=== PATIENT | female | born 1960 | race Caucasian/White ===

== ENCOUNTER 2018-02-23 05:41 | Day surgery (SDC) | payer MEDICAID ==
[2018-02-19 11:32] LABS: BASOPHILS % (AUTO) 0.6 % (0-1); EOSINOPHILS # (AUTO) 0.1 X10'3 (0-0.9); EOSINOPHILS % (AUTO) 1.8 % (0-6); LYMPHOCYTES # (AUTO) 1.7 X10'3 (1.1-4.8); LYMPHOCYTES % (AUTO) 27.4 % (21-51); MEAN CORPUSCULAR HEMOGLOBIN 27.5 PG (27.0-31.0); MEAN CORPUSCULAR HGB CONC 33.9 % (33.0-36.5); MEAN CORPUSCULAR VOLUME 81.2 FL (78-98); MONOCYTES # (AUTO) 0.4 X10'3 (0-0.9); MONOCYTES % (AUTO) 6.9 % (2-12); NEUTROPHILS % (AUTO) 63.3 % (42-75); PRE OP HEMATOCRIT 41.8 % (35.0-45.0); PRE OP HEMOGLOBIN 14.1 g/dL (12.0-16.0); PRE OP PLATELET COUNT 117 X10'3 (140-440); RED BLOOD COUNT 5.15 X10'6 (4.20-5.60); RED CELL DISTRIBUTION WIDTH 16.5 % (11.5-14.5)
[2018-02-19 11:50] LABS: ALBUMIN 3.6 G/DL (3.4-5.0); ALKALINE PHOSPHATASE 149 IU/L (46-116); BLOOD UREA NITROGEN 17 MG/DL (7-18); BUN/CREATININE RATIO 24.3 (6.6-38.0); CALCIUM 8.8 MG/DL (8.5-10.1); CHLORIDE 106 MMOL/L (99-107); PRE OP ALT 30 U/L (30-65); PRE OP ANION GAP 10 (8-16); PRE OP AST 16 U/L (10-37); PRE OP BILIRUB, TOTAL 0.5 MG/DL (0.0-1.0); PRE OP POTASSIUM 4.1 MMOL/L (3.4-5.1); PRE OP SODIUM 139 MMOL/L (135-145); TOTAL CARBON DIOXIDE 23.4 MMOL/L (24-32); TOTAL PROTEIN 7.1 G/DL (6.4-8.2); eGFR 86 ML/MIN
[2018-02-19 11:52] LABS: PRE OP GLUCOSE 229 MG/DL (70-104)
[~2018-02-23] VITALS: Ht 175.3 cm; Wt 146.7 kg
[2018-02-23] VITALS (26 sets, daily range): BP systolic 118–203; BP diastolic 55–112
[~2018-02-23 05:41] MED LIST: ATOR80TA PO; CHOL50004 PO; Cefazolin 2GM/100ML NS IVPB IV ONE; DIT5T PO; ESCI20TA29 PO; GABA600T2 PO; INSU100C10 SQ; INSU100V9 SQ; KEP500T PO; LEVO112T61 PO; LISI2.5T89 PO; MAGN64TA8 PO; PANT20TA3 PO; ROPI1TAB2 PO; famotidine 20mg tablet PO ONE; ringers solution, lacted 1,000 ML IV SCH
[2018-02-23] MEDS ORDERED: scopolamine 1.5mg patch.TD72 TD ONE (06:35)
[2018-02-23] MEDS ORDERED: insulin regular, human 10 units/0.1 ml syringe IV ONE ×2 (06:55→07:15)
[2018-02-23] MEDS ORDERED: insulin regular, human 10 units/0.1 ml syringe SQ ONE ×3 (07:00→09:15)
[2018-02-23] MEDS ORDERED: ROPIVAcaine 0.5% (5mg/ml) 30ml vial ONE (07:00)
[2018-02-23] MEDS ORDERED: cloNIDine hcl/PF 100mcg/ml inj ONE (07:07)
[2018-02-23] MEDS ORDERED: BUPIVAcaine/PF 7.5mg/ml (0.75%) 10ml vial ONE (07:07)
[2018-02-23] MEDS ORDERED: desflurane 240ml liquid inh. IH ONE (07:18)
[2018-02-23] MEDS ORDERED: ondansetron/PF 4mg/2ml inj ONE (07:18)
[2018-02-23] MEDS ORDERED: MIDAZolam 5mg/5ml vial ONE (07:21)
[2018-02-23] MEDS ORDERED: fentaNYL/PF 50MCG/1 ML 2ML syringe ONE (07:21)
[2018-02-23] MEDS ORDERED: propofol inj 20 ML IV ONE (08:24)
[2018-02-23] MEDS ORDERED: rocuronium 10mg/ml inj IV ONE (08:24)
[2018-02-23] MEDS ORDERED: LIDOcaine 2% (20mg/ml) 5ml vial ONE (08:24)
[2018-02-23] MEDS ORDERED: 0.9 % SODIUM CHLORIDE 10 ML VIAL ONE ×2 (08:24)
[2018-02-23] MEDS ORDERED: LIDOcaine 1%/PF (10mg/ml) 5ml vial ONE (08:25)
[2018-02-23] MEDS ORDERED: dexamethasone sod phosphate 4mg/ml inj. ONE (08:25)
[2018-02-23] MEDS ORDERED: morphine 10mg/ml inj. ONE (08:26)
[2018-02-23] MEDS ORDERED: ringers solution, lacted 1,000 ML IV SCH (08:37)
[2018-02-23] MEDS ORDERED: proCHLORperazine 10 MG/2 ml inj IV PRN (08:40)
[2018-02-23] MEDS ORDERED: ondansetron/PF 4mg/2ml inj IV PRN (08:40)
[2018-02-23] MEDS ORDERED: meperidine/PF 25mg/ml syringe IV PRN ×3 (08:40)
[2018-02-23] MEDS ORDERED: morphine 4 MG/ML inj SYRINge IV PRN ×2 (08:40)
[2018-02-23] MEDS ORDERED: hydrALAZINE 20mg/ml inj. IV PRN (08:55)
[2018-02-23] MEDS ORDERED: labetalol 20mg/4ml (5mg/ml) syringe IV PRN (08:55)
[2018-02-23] MEDS ORDERED: dextrose ORAL solution 15 GM/59 ML bottle PO PRN ×2 (14:25)
[2018-02-23] MEDS ORDERED: glucagon, human recombinant 1mg kit SUBCUT PRN (14:25)
[2018-02-23] MEDS ORDERED: MESSAGE TO PHARMACY PO ONE (14:25)
[2018-02-23] MEDS ORDERED: dextrose 50%-water 50ml dispensing syringe IV PRN ×2 (14:25)
[2018-02-23] MEDS: insulin Lispro (HumaLOG) vial - multi-dose SQ SCH ×2 (19:06→21:27)
[2018-02-23] MEDS ORDERED: insulin glargine (Lantus) pen - multi-dose SQ SCH (21:00)
[2018-02-23] MEDS: HYDROcodone/acetaminophen 10/325mg tab PO PRN (21:23)
[2018-02-24 02:00] VITALS: BP 127/67
[2018-02-24] MEDS: HYDROcodone/acetaminophen 10/325mg tab PO PRN (02:38)
[2018-02-24 05:00] VITALS: BP 137/64
[2018-02-24] MEDS ORDERED: pantoprazole 40mg Tablet.DR PO SCH (07:30)
[2018-02-24] MEDS ORDERED: oxybutynin 5mg tablet PO SCH (08:00)
[2018-02-24] MEDS ORDERED: citalopram 20mg tablet PO SCH (08:00)
[2018-02-24] MEDS ORDERED: gabapentin 300mg capsule PO SCH (08:00)
[2018-02-24] MEDS ORDERED: lisinopril 5mg tablet PO SCH (08:00)
[2018-02-24] MEDS ORDERED: levetiracetam 250mg tablet PO SCH (08:00)
[2018-02-24] MEDS ORDERED: vitamin D (cholecalciferol) 1,000 unit tablet PO SCH (08:00)
[2018-02-24] MEDS ORDERED: ROPINIRole 1mg tablet PO SCH (08:00)
[2018-02-24] MEDS ORDERED: INSULIN GLARGINE HUM REC ANLOG 100 UNIT SQ SCH (08:00)
[2018-02-24] MEDS ORDERED: levoTHYROXINE 112mcg tablet PO SCH (08:00)
[2018-02-24] MEDS: insulin Lispro (HumaLOG) vial - multi-dose SQ SCH (08:12)
[2018-02-24] MEDS ORDERED: insulin glargine (Lantus) pen - multi-dose SQ ONE (09:15)
[2018-02-24 10:00] VITALS: BP 125/59
[2018-02-24] MEDS ORDERED: atorvastatin 20mg tablet PO SCH (21:00)
== END 2018-02-24 12:17 | disposition home or self-care (01) ==
LOC: PAS 05:41 → ORTHO 4S 14:07 → PAS 02-24 12:17
PROVIDERS: ATTEND Orthopaedic Surgery
DX: M75.42 Impingement syndrome of left shoulder (principal); M75.32 Calcific tendinitis of left shoulder; M75.52 Bursitis of left shoulder; M25.712 Osteophyte, left shoulder; G89.18 Other acute postprocedural pain; E11.9 Type 2 diabetes mellitus without complications; I10 Essential (primary) hypertension; E03.9 Hypothyroidism, unspecified; E78.5 Hyperlipidemia, unspecified; F32.9 Major depressive disorder, single episode, unspecified; F41.9 Anxiety disorder, unspecified; G89.29 Other chronic pain; I25.10 Atherosclerotic heart disease of native coronary artery without angina pectoris; K21.9 Gastro-esophageal reflux disease without esophagitis; M81.0 Age-related osteoporosis without current pathological fracture; Z79.4 Long term (current) use of insulin; Z88.2 Allergy status to sulfonamides; Z88.8 Allergy status to other drugs, medicaments and biological substances; Z91.040 Latex allergy status; Z87.891 Personal history of nicotine dependence; Z90.710 Acquired absence of both cervix and uterus; Z88.5 Allergy status to narcotic agent; Z88.6 Allergy status to analgesic agent; Z90.49 Acquired absence of other specified parts of digestive tract; Z98.890 Other specified postprocedural states; Z79.899 Other long term (current) drug therapy
CPT/HCPCS: 29823; 29826; 36415; 64415; 80053; 82948; 83036; 85025; 93005; A4565; A6449; J0690; J0735; J1100; J1815; J2001; J2250; J2270; J2405; J2704; J2795; J3010; J3490; J7030; J7120; A7000

== ENCOUNTER 2019-07-22 07:12 | Observation (INO) | payer MEDICAID ==
[2019-07-14 12:14] LABS: BASOPHILS # (AUTO) 0.1 X10'3 (0-0.2); EOSINOPHILS % (AUTO) 0.6 % (0-6); LYMPHOCYTES # (AUTO) 1.9 X10'3 (1.1-4.8); LYMPHOCYTES % (AUTO) 24.7 % (21-51); MEAN CORPUSCULAR HEMOGLOBIN 26.4 PG (27.0-31.0); MEAN CORPUSCULAR HGB CONC 33.1 g/dL (33.0-36.5); MEAN CORPUSCULAR VOLUME 79.8 FL (78-98); MEAN PLATELET VOLUME 8.5 FL (7.4-10.4); MONOCYTES # (AUTO) 0.5 X10'3 (0-0.9); NEUTROPHILS # (AUTO) 5.1 X10'3 (1.8-7.7); NEUTROPHILS % (AUTO) 67.7 % (42-75); PRE OP HEMOGLOBIN 13.6 g/dL (12.0-16.0); PRE OP PLATELET COUNT 154 X10'3 (140-440); RED BLOOD COUNT 5.14 X10'6 (4.20-5.60); RED CELL DISTRIBUTION WIDTH 17.4 % (11.5-14.5)
[2019-07-14 12:28] LABS: PARTIAL THROMBOPLASTIN TIME 26 SECONDS (22-32)
[2019-07-14 12:29] LABS: ALBUMIN 3.6 G/DL (3.4-5.0); ALBUMIN/GLOBULIN RATIO 0.9 (1.1-1.5); ALKALINE PHOSPHATASE 139 IU/L (46-116); BLOOD UREA NITROGEN 21 MG/DL (7-18); BUN/CREATININE RATIO 26.9 (6.6-38.0); CALCIUM 9.1 MG/DL (8.5-10.1); CHLORIDE 107 MMOL/L (99-107); CREATININE 0.78 MG/DL (0.40-0.90); PRE OP ALT 25 U/L (30-65); PRE OP ANION GAP 10 (8-16); PRE OP AST 10 U/L (10-37); PRE OP BILIRUB, TOTAL 0.4 MG/DL (0.0-1.0); PRE OP GLUCOSE 214 MG/DL (70-104); PRE OP POTASSIUM 4.4 MMOL/L (3.4-5.1); PRE OP SODIUM 143 MMOL/L (135-145); TOTAL CARBON DIOXIDE 25.8 MMOL/L (24-32); TOTAL PROTEIN 7.4 G/DL (6.4-8.2); eGFR 75 ML/MIN
[2019-07-22] VITALS (17 sets, daily range): BP systolic 115–180; BP diastolic 57–98
[~2019-07-22] VITALS: Ht 175.3 cm; Wt 149.7 kg
[~2019-07-22 07:12] MED LIST changes: -CHOL50004 PO; -Cefazolin 2GM/100ML NS IVPB IV ONE; +GABA600T13 PO; -GABA600T2 PO; +HYDR-4383 PO; -MAGN64TA8 PO; +METF500T20 PO; -famotidine 20mg tablet PO ONE; -ringers solution, lacted 1,000 ML IV SCH
[2019-07-22] MEDS: ringers solution, lacted 1,000 ML IV SCH (09:08)
[2019-07-22] MEDS ORDERED: famotidine 20mg tablet PO ONE (10:15)
[2019-07-22] MEDS ORDERED: tranexamic acid inj. 1,500 MG in normal saline 100ml IV soln 100 ML IV ONE ×4 (10:15)
[2019-07-22] MEDS ORDERED: ceFAZolin 1GM/D5W- ADD-VANTAGE 50 ML IV ONE (10:15)
[2019-07-22] MEDS ORDERED: vancomycin inj 1,500 MG in normal saline 300ml IV soln IV ONE (10:15)
[2019-07-22] MEDS ORDERED: ceFAZolin inj. 2,000 MG in dextrose 5%-water 50ml 50 ML IV ONE (10:15)
[2019-07-22] MEDS ORDERED: HYDR-4383 PO (12:24)
[2019-07-22] MEDS ORDERED: HYDROcodone/acetaminophen 10/325mg tab PO ONE (12:25)
[2019-07-22] MEDS ORDERED: fentaNYL /PF 50mcg/ml 5ml ampule ONE (14:48)
[2019-07-22] MEDS ORDERED: MIDAZolam 5mg/5ml vial ONE (14:48)
[2019-07-22] MEDS ORDERED: ROPIVAcaine 0.5% (5mg/ml) 30ml vial ONE (14:49)
[2019-07-22] MEDS ORDERED: rocuronium 10mg/ml inj IV ONE (14:50)
[2019-07-22] MEDS ORDERED: sevoflurane 250ml liquid IH ONE (14:50)
[2019-07-22] MEDS ORDERED: propofol inj 20 ML IV ONE (15:53)
[2019-07-22] MEDS ORDERED: dexamethasone sod phosphate 4mg/ml inj. ONE (15:53)
[2019-07-22] MEDS ORDERED: LIDOcaine 2% (20mg/ml) 5ml vial ONE (15:53)
[2019-07-22] MEDS ORDERED: BUPIVAcaine/PF 2.5mg/ml (0.25%) 10ml vial ONE (16:39)
[2019-07-22] MEDS ORDERED: ringers solution, lacted 1,000 ML IV SCH (16:51)
[2019-07-22] MEDS ORDERED: HYDROmorphone 1 mg/ml syringe IV PRN (16:55)
[2019-07-22] MEDS ORDERED: ondansetron/PF 4mg/2ml inj IV PRN ×2 (16:55)
[2019-07-22] MEDS ORDERED: oxyCODONE IR 5mg (immed. release) tablet PO PRN (16:55)
[2019-07-22] MEDS ORDERED: morphine 4 MG/ML inj SYRINge IV PRN ×2 (16:55)
[2019-07-22] MEDS ORDERED: proCHLORperazine 10 MG/2 ml inj IV PRN (16:55)
[2019-07-22] MEDS ORDERED: meperidine/PF 25mg/ml syringe IV PRN ×3 (16:55)
[2019-07-22] MEDS ORDERED: diphenhydrAMINE 25mg capsule PO PRN ×2 (16:55)
[2019-07-22] MEDS ORDERED: acetaminophen 325mg tablet PO PRN (16:55)
[2019-07-22] MEDS ORDERED: potassium cl 20mEq in 1/2 NS 1,000 ML IV SCH (16:55)
[2019-07-22] MEDS ORDERED: HYDROmorphone inj. 0.5 MG/0.5 ML DISP.SYRIN IV PRN (16:55)
[2019-07-22] MEDS ORDERED: bisacodyl 10mg suppository rectal RC PRN (16:55)
[2019-07-22] MEDS ORDERED: magnesium hydroxide 30ml (MOM) UD suspension PO PRN (16:55)
[2019-07-22] MEDS ORDERED: ondansetron/PF 4mg/2ml inj ONE (17:07)
[2019-07-22] MEDS ORDERED: glycopyrrolate 0.2mg/ml inj ONE (17:12)
[2019-07-22] MEDS ORDERED: neostigmine methylsulfate 1 MG/ML 10ml vial ONE (17:12)
--- NOTE | 2019-07-22 17:25 | NUR ---
Received from OR via ORTHO BED , accompanied by Anesthesiologist DR CELESTE and report given by Anesthesiolgist. PT PLACED ON O2 AND MONITOR, S/P RIGHT SHOULDER REPAIR, GENERAL ANESTHESIA AND INTERSCALENE BLOCK, PT HAS REIGHT SHOULDER DRESSING CDI, GOOD RADIAL PULSES BILAT, DENIES ANY PAIN OR NAUSEA THIS TIME WILL CONT TO ASSESS
--- NOTE | 2019-07-22 18:45 | NUR ---
Report was called to me by America TORRES in [facility] and I was able to ask questions, I will give report to Brittani TORRES once she is available and she is going to be the nurse for the patient.
--- NOTE | 2019-07-22 18:45 | NUR ---
Report called to receiving nurse. Transferred via ORTHO BED TO ROOM 4022 Belongings . Special Issues communicated to receiving nurse.
--- NOTE | 2019-07-22 19:00 | NUR ---
Patient arrived to floor on a bed, she is awake and vitals are stable. The operative shoulder is cdi to the incision and I applied a new powder pack to operative site. She has a sling on and the operative arm is warm, csm is intact and she is able to lift arm and move the fingers of operative arm. She has iv in place and call light in reach and visitors at bedside.
--- NOTE | 2019-07-22 19:47 | NUR ---
Discovered that the vitals sign machine did not save the frequency of q 15 minutes so I rest it at this time for every 15 minutes.
[2019-07-22] MEDS ORDERED: sennosides 8.6mg tablet PO SCH (21:00)
[2019-07-22] MEDS ORDERED: atorvastatin 20mg tablet PO SCH (21:00)
[2019-07-22] MEDS: levetiracetam 250mg tablet PO SCH (21:07)
[2019-07-22] MEDS: gabapentin 300mg capsule PO SCH (21:07)
[2019-07-22] MEDS: ROPINIRole 1mg tablet PO SCH (21:09)
[2019-07-22] MEDS: acetaminophen 325mg tablet PO SCH (21:09)
[2019-07-23] VITALS: BP 90/66
[2019-07-23] MEDS: acetaminophen 325mg tablet PO SCH ×2 (01:55→08:26)
[2019-07-23 02:00] VITALS: BP 122/57
[2019-07-23] MEDS: ringers solution, lacted 1,000 ML IV SCH ×5 (03:18→04:41)
[2019-07-23 06:00] VITALS: BP 132/62
--- NOTE | 2019-07-23 06:10 | NUR ---
Patient in room ORTHO 4022. I have received report from Brittani TORRES and had the opportunity to ask questions and assume patient care.
[2019-07-23 06:27] LABS: ANION GAP 12 (8-16); CHLORIDE 104 MMOL/L (99-107); POTASSIUM 4.6 MMOL/L (3.5-5.1); SODIUM 138 MMOL/L (135-145); TOTAL CARBON DIOXIDE 22.3 MMOL/L (24-32)
[2019-07-23 06:30] LABS: BASOPHILS % (AUTO) 0.2 % (0-1); EOSINOPHILS % (AUTO) 0 % (0-6); HEMATOCRIT 38.4 % (35.0-45.0); HEMOGLOBIN 12.6 g/dl (12.0-16.0); LYMPHOCYTES # (AUTO) 0.9 X10'3 (1.1-4.8); LYMPHOCYTES % (AUTO) 11.9 % (21-51); MEAN CORPUSCULAR HEMOGLOBIN 26.3 PG (27.0-31.0); MEAN CORPUSCULAR HGB CONC 32.9 g/dL (33.0-36.5); MEAN CORPUSCULAR VOLUME 79.9 FL (78-98); MEAN PLATELET VOLUME 9.3 FL (7.4-10.4); MONOCYTES # (AUTO) 0.2 X10'3 (0-0.9); NEUTROPHILS # (AUTO) 6.4 X10'3 (1.8-7.7); NEUTROPHILS % (AUTO) 84.9 % (42-75); PLATELET COUNT 128 X10'3 (140-440); RED CELL DISTRIBUTION WIDTH 17.3 % (11.5-14.5); WHITE BLOOD COUNT 7.5 X10'3 (4.5-11.0)
[2019-07-23] MEDS ORDERED: metFORMIN 500mg tablet PO SCH (07:00)
[2019-07-23] MEDS ORDERED: levoTHYROXINE 112mcg tablet PO SCH (08:00)
[2019-07-23] MEDS ORDERED: ESCITALOPRAM OXALATE 5 MG TABLET PO SCH (08:00)
[2019-07-23] MEDS ORDERED: lisinopril 10 MG tablet PO SCH (08:00)
[2019-07-23] MEDS ORDERED: pantoprazole 40mg Tablet.DR PO SCH (08:00)
[2019-07-23] MEDS: ROPINIRole 1mg tablet PO SCH (08:00)
[2019-07-23] MEDS ORDERED: oxybutynin 5mg tablet PO SCH (08:00)
[2019-07-23] MEDS: levetiracetam 250mg tablet PO SCH (08:26)
[2019-07-23] MEDS: gabapentin 300mg capsule PO SCH ×2 (08:26→13:01)
[2019-07-23] MEDS ORDERED: aspirin 325mg tablet PO SCH (08:30)
[2019-07-23] MEDS ORDERED: dextrose ORAL solution 15 GM/59 ML bottle PO PRN ×2 (09:05)
[2019-07-23] MEDS ORDERED: dextrose 50%-water 50ml dispensing syringe IV PRN ×2 (09:05)
[2019-07-23] MEDS ORDERED: glucagon, human recombinant 1mg kit SUBCUT PRN (09:05)
[2019-07-23] MEDS ORDERED: MESSAGE TO PHARMACY PO ONE (09:05)
[2019-07-23] MEDS: insulin Lispro (HumaLOG) vial - multi-dose SQ SCH ×2 (09:44→13:01)
[2019-07-23 10:00] VITALS: BP 121/53
--- NOTE | 2019-07-23 14:48 | NUR ---
Patient stable for discharge home today. All instructions given to patient, IV out.
[2019-07-23] MEDS ORDERED: insulin glargine (Lantus) pen - multi-dose SQ SCH (21:00)
[2019-07-24] MEDS ORDERED: acetaminophen 325mg tablet PO PRN (16:55)
== END 2019-07-23 13:20 | disposition home or self-care (01) ==
LOC: PAS 07:12 → ORTHO 4S 19:23
PROVIDERS: ADMIT Orthopaedic Surgery; ATTEND Orthopaedic Surgery
DX: M75.41 Impingement syndrome of right shoulder (principal); M75.31 Calcific tendinitis of right shoulder; M75.51 Bursitis of right shoulder; M19.011 Primary osteoarthritis, right shoulder; E11.9 Type 2 diabetes mellitus without complications; Z87.891 Personal history of nicotine dependence; Z90.710 Acquired absence of both cervix and uterus; Z79.4 Long term (current) use of insulin; Z79.899 Other long term (current) drug therapy
CPT/HCPCS: 23415; 36415; 80051; 80053; 82948; 83036; 85025; 85610; 85730; 87081; 93005; 96365; 96366; 96372; 96375; 97161; 97530; G0378; J0690; J1100; J1815; J2001; J2250; J2270; J2405; J2704; J2710; J3010; J3370; J3490; J7060; J7120; A4565; A4618; A6449; A7000; J1170; J2795; J3480

== ENCOUNTER 2020-04-15 02:35 | Emergency (ER) | payer MEDICAID ==
[~2020-04-15] VITALS: Ht 175.3 cm; Wt 150.9 kg
[~2020-04-15 02:35] MED LIST changes: +METF-900 PO; -METF500T20 PO
--- NOTE | 2020-04-15 02:58 | NUR ---
EMS DID NOT TELL STAFF PT WAS TESTED FOR COVID. SHE STATED SHE HAD A TEST ON THURSDAY. SHE WAS THEN PLACED ON CONTACT PLUS PRECAUTIONS. DR. DEL VALLE MADE AWARE. WILL LOOK UP RESULTS. PT STATES THEY HAVE NOT CONTACTED HER
[2020-04-15] MEDS ORDERED: LORazepam 1 MG tablet PO ONE (03:40)
[2020-04-15] MEDS ORDERED: normal saline 1000ml 1,000 ML IV ONE (03:40)
[2020-04-15 03:51] LABS: BASOPHILS % (AUTO) 0.4 % (0-1); EOSINOPHILS # (AUTO) 0.1 X10'3 (0-0.9); EOSINOPHILS % (AUTO) 1.6 % (0-6); HEMATOCRIT 40.9 % (35.0-45.0); HEMOGLOBIN 13.3 g/dl (12.0-16.0); LYMPHOCYTES # (AUTO) 1.9 X10'3 (1.1-4.8); LYMPHOCYTES % (AUTO) 31.2 % (21-51); MEAN CORPUSCULAR HEMOGLOBIN 25.9 PG (27.0-31.0); MEAN CORPUSCULAR HGB CONC 32.5 g/dL (33.0-36.5); MEAN CORPUSCULAR VOLUME 79.6 FL (78-98); MEAN PLATELET VOLUME 8.6 FL (7.4-10.4); MONOCYTES # (AUTO) 0.4 X10'3 (0-0.9); NEUTROPHILS # (AUTO) 3.7 X10'3 (1.8-7.7); NEUTROPHILS % (AUTO) 59.8 % (42-75); PLATELET COUNT 148 X10'3 (140-440); RED BLOOD COUNT 5.14 X10'6 (4.20-5.60); RED CELL DISTRIBUTION WIDTH 17.7 % (11.5-14.5); WHITE BLOOD COUNT 6.2 X10'3 (4.5-11.0)
[2020-04-15 03:59] LABS: ALANINE AMINOTRANSFERASE 24 U/L (12-78); ALBUMIN 3.6 G/DL (3.4-5.0); ALKALINE PHOSPHATASE 141 IU/L (46-116); ANION GAP 12 (8-16); ASPARTATE AMINO TRANSFERASE 13 U/L (10-37); BILIRUBIN,TOTAL 0.5 MG/DL (0.1-1.0); BLOOD UREA NITROGEN 17 MG/DL (7-18); BUN/CREATININE RATIO 18.9 (6.6-38.0); CALCIUM 9.3 MG/DL (8.5-10.1); CHLORIDE 103 MMOL/L (99-107); GLUCOSE 224 MG/DL (70-104); POTASSIUM 3.9 MMOL/L (3.5-5.1); SODIUM 140 MMOL/L (135-145); TOTAL CARBON DIOXIDE 25.1 MMOL/L (24-32); TOTAL PROTEIN 7.2 G/DL (6.4-8.2); eGFR 64 ML/MIN
[2020-04-15] MEDS ORDERED: iohexol 350MG/ML 100ml bottle IV ONE (04:13)
[2020-04-15] MEDS ORDERED: OMEP40CA13 PO (04:14)
[2020-04-15 04:22] LABS: D-DIMER < 0.19 MG/L FEU (0-0.50)
[2020-04-15] MEDS ORDERED: [UNRECOGNIZED DRUG - REMARK] PO NR (05:00)
[2020-04-15 05:38] VITALS: BP 143/72
== END 2020-04-15 07:40 | disposition home or self-care (01) ==
LOC: ER 02:35
DX: R42 Dizziness and giddiness (principal); R50.9 Fever, unspecified; J34.89 Other specified disorders of nose and nasal sinuses; M54.2 Cervicalgia; E78.00 Pure hypercholesterolemia, unspecified; E11.9 Type 2 diabetes mellitus without complications; E03.9 Hypothyroidism, unspecified; F32.9 Major depressive disorder, single episode, unspecified; Z86.69 Personal history of other diseases of the nervous system and sense organs; Z90.89 Acquired absence of other organs; Z90.49 Acquired absence of other specified parts of digestive tract; Z90.710 Acquired absence of both cervix and uterus; Z88.2 Allergy status to sulfonamides; Z88.5 Allergy status to narcotic agent; Z88.1 Allergy status to other antibiotic agents; Z88.8 Allergy status to other drugs, medicaments and biological substances; Z91.040 Latex allergy status; Z79.4 Long term (current) use of insulin; Z79.899 Other long term (current) drug therapy
CPT/HCPCS: 36415; 70450; 70496; 70498; 71045; 80053; 84443; 84484; 85025; 85379; 93005; 99285; J7030; Q9967

== ENCOUNTER 2021-01-04 12:24 | Inpatient (IN) | payer MEDICAID ==
[2020-12-31 12:18] LABS: BASOPHILS % (AUTO) 0.5 % (0-1); EOSINOPHILS # (AUTO) 0.1 X10'3 (0-0.9); EOSINOPHILS % (AUTO) 1.2 % (0-6); LYMPHOCYTES # (AUTO) 1.5 X10'3 (1.1-4.8); LYMPHOCYTES % (AUTO) 21.3 % (21-51); MEAN CORPUSCULAR HGB CONC 32.4 g/dL (33.0-36.5); MEAN CORPUSCULAR VOLUME 80.4 FL (78-98); MEAN PLATELET VOLUME 8.6 FL (7.4-10.4); MONOCYTES # (AUTO) 0.5 X10'3 (0-0.9); MONOCYTES % (AUTO) 7.2 % (2-12); NEUTROPHILS # (AUTO) 4.8 X10'3 (1.8-7.7); NEUTROPHILS % (AUTO) 69.8 % (42-75); PRE OP HEMATOCRIT 40.5 % (35.0-45.0); PRE OP HEMOGLOBIN 13.1 g/dL (12.0-16.0); PRE OP PLATELET COUNT 142 X10'3 (140-440); RED BLOOD COUNT 5.04 X10'6 (4.20-5.60); RED CELL DISTRIBUTION WIDTH 17.8 % (11.5-14.5)
[2020-12-31 12:25] LABS: CLARITY,URINE CLOUDY (Clear); COLOR,URINE YELLOW (Yellow); GLUCOSE, URINE NEGATIVE (Neg); KETONES,URINE TRACE mg/dl (Neg); LEUKOCYTE ESTERASE ,URINE NEGATIVE (Neg); NITRITES, URINE NEGATIVE (Neg); OCCULT BLOOD,URINE NEGATIVE (Neg); PROTEIN,URINE NEGATIVE (Neg); UROBILINOGEN,URINE 0.2 E.U/dL (0.2-1.0)
[2020-12-31 12:27] LABS: UA COLLECTION TYPE NON-SPECIFIED
[2020-12-31 12:35] LABS: ALBUMIN 3.7 G/DL (3.4-5.0); ALKALINE PHOSPHATASE 152 IU/L (46-116); BLOOD UREA NITROGEN 15 MG/DL (7-18); BUN/CREATININE RATIO 20.5 (6.6-38.0); CALCIUM 8.7 MG/DL (8.5-10.1); CHLORIDE 107 MMOL/L (99-107); CREATININE 0.73 MG/DL (0.40-0.90); PRE OP ALT 31 U/L (30-65); PRE OP ANION GAP 15 (8-16); PRE OP AST 19 U/L (10-37); PRE OP BILIRUB, TOTAL 0.3 MG/DL (0.0-1.0); PRE OP GLUCOSE 175 MG/DL (70-104); PRE OP POTASSIUM 4.7 MMOL/L (3.4-5.1); PRE OP SODIUM 141 MMOL/L (135-145); TOTAL CARBON DIOXIDE 19.1 MMOL/L (24-32); TOTAL PROTEIN 7.3 G/DL (6.4-8.2); eGFR 81 ML/MIN
[2020-12-31 12:38] LABS: HYALINE CASTS 0-3 /LPF (NEGATIVE); MUCUS STRANDS MODERATE /LPF (Neg); SQUAMOUS EPITHELIAL CELL,UR MANY /LPF (FEW)
[2020-12-31 12:39] LABS: BACTERIA,URINE 1+ /HPF (Neg); RBC,URINE 0-2 /HPF (0-2); TRANSITIONAL EPI CELLS,URINE FEW /HPF; WBC,URINE 0-4 /HPF (0-4)
[2021-01-04] VITALS (22 sets, daily range): BP systolic 121–186; BP diastolic 49–93
[~2021-01-04] VITALS: Ht 175.3 cm; Wt 151.8 kg
[~2021-01-04 12:24] MED LIST changes: -HYDR-4383 PO; -INSU100C10 SQ; +INSU100I39 SQ; +OMEP40CA13 PO; -PANT20TA3 PO; +albuterol 2.5 MG/3 ML nebule NEB ONE; +ceFAZolin/D5W- 1GM premix 50 ML IV ONE; +cefazolin/dext.iso 2gm/100ml 100 ML IV ONE; +famotidine 20mg tablet PO ONE
[2021-01-04] MEDS: ringers solution, lacted 1,000 ML IV SCH ×2 (13:31→21:49)
[2021-01-04] MEDS ORDERED: fentaNYL/PF 50MCG/1 ML 2ML syringe ONE (16:37)
[2021-01-04] MEDS ORDERED: MIDAZolam 1 MG/ML 5ML VIAL ONE (16:38)
[2021-01-04] MEDS ORDERED: ROPIVAcaine 0.5% (5mg/ml) 30ml vial ONE (16:46)
[2021-01-04] MEDS ORDERED: BUPIVAcaine/PF 7.5mg/ml (0.75%) 10ml vial ONE (17:03)
[2021-01-04] MEDS ORDERED: propofol inj 20 ML IV ONE (17:07)
[2021-01-04] MEDS ORDERED: ondansetron/PF 4mg/2ml inj ONE (17:26)
[2021-01-04] MEDS ORDERED: dexamethasone sod phosphate 4mg/ml inj. ONE (17:26)
[2021-01-04] MEDS ORDERED: meperidine/PF 25mg/ml syringe IV PRN ×3 (18:00)
[2021-01-04] MEDS ORDERED: morphine 4 MG/ML inj SYRINge IV PRN (18:00)
[2021-01-04] MEDS ORDERED: proCHLORperazine 10 MG/2 ml inj IV PRN (18:00)
[2021-01-04] MEDS ORDERED: morphine 2 MG/ML inj. syringe IV PRN (18:00)
[2021-01-04] MEDS ORDERED: ringers solution, lacted 1,000 ML IV SCH (18:00)
[2021-01-04] MEDS ORDERED: ondansetron/PF 4mg/2ml inj IV PRN ×2 (18:00→19:50)
[2021-01-04] MEDS ORDERED: bacitracin 15gm ointment TP ONE (18:16)
--- NOTE | 2021-01-04 18:46 | NUR ---
Received from OR via [facility], accompanied by Anesthesiologist DR CELESTE and report given by Anesthesiologist. PT DROWSY, DENIES PAIN, LEFT FOOT W/EVA WRAP COVERING INCISION/DRSG W/WALKING BOOT ON, [address] IN 2ND-5TH TOE. Addendum: 01/04/21 at 194 by Camryn Mathur RN Amended: Links added.
[2021-01-04] MEDS ORDERED: labetalol 20mg/4ml (5mg/ml) syringe IV ONE (19:08)
[2021-01-04] MEDS: labetalol 20mg/4ml (5mg/ml) syringe IV PRN (19:14)
[2021-01-04] MEDS ORDERED: mag hydrox/Alum hydrox/simeth 30ml oral suspension PO PRN (19:50)
[2021-01-04] MEDS ORDERED: HYDROcodone/acetaminophen 10/325mg tab PO PRN (19:50)
[2021-01-04] MEDS ORDERED: magnesium hydroxide 30ml (MOM) UD suspension PO PRN (19:50)
[2021-01-04] MEDS ORDERED: acetaminophen 325mg tablet PO PRN (19:50)
--- NOTE | 2021-01-04 20:31 | NUR ---
Patient in room . I have received report from KENYATTA TORRES PAS UNIT RN and had the opportunity to ask questions and will assume patient care upon arrival to the floor. Addendum: 01/04/21 at 2032 by Yoana Doan RN Amended: Links added.
--- NOTE | 2021-01-04 20:46 | NUR ---
Report called to receiving nurse. Transferred via GURNEY ONTO BED, 2 BAGS OF Belongings, CELL PHONE SENT W/PT TO ROOM 340B, RECEIVING RN AT BEDSIDE TO RECIEVE PT. BLL, CALL LIGHT GIVEN TO PT, SIDE RAILS UP. Special Issues communicated to receiving nurse. YES. Addendum: 01/04/21 at 2105 by Camryn Mathur RN Amended: Links added.
[2021-01-04] MEDS ORDERED: atorvastatin 20mg tablet PO SCH (21:00)
--- NOTE | 2021-01-04 21:00 | NUR ---
pt arrived to the floor set in room vitals done and hs meds given and [place] done and then given a sandwich. pt hungry. 2099 to 2129.
[2021-01-04] MEDS: metFORMIN 500mg tablet PO SCH (21:20)
[2021-01-04] MEDS: ROPINIRole 1mg tablet PO SCH (21:22)
--- NOTE | 2021-01-04 22:00 | NUR ---
medicated for pain with po norco for right and left foot pain.
[2021-01-04] MEDS: insulin Lispro (HumaLOG) vial - multi-dose SQ PRN (23:02)
--- NOTE | 2021-01-05 00:30 | NUR ---
pt awoke pure wick in place and no changes ice pack to left leg. pt took po Neurontin.
[2021-01-05 00:35] VITALS: BP 124/58
[2021-01-05] MEDS: gabapentin 300mg capsule PO SCH ×2 (00:42→07:35)
--- NOTE | 2021-01-05 02:38 | NUR ---
pt resting eyes closed without changes.
[2021-01-05 04:09] VITALS: BP 125/69
--- NOTE | 2021-01-05 04:16 | NUR ---
pt awake and reading no complaints at this time. vss. pure wick 650 clear yellow urine.
[2021-01-05] MEDS: labetalol 20mg/4ml (5mg/ml) syringe IV PRN (05:40)
--- NOTE | 2021-01-05 06:14 | NUR ---
Problems reprioritized. Patient report given, questions answered & plan of care reviewed with Daphne Enciso. Addendum: 01/05/21 at 0614 by Yoana Doan RN Amended: Links added.
--- NOTE | 2021-01-05 06:47 | NUR ---
Patient in room [facility] 340. I have received report from MELISSA Lees and had the opportunity to ask questions and assume patient care.
[2021-01-05] MEDS: metFORMIN 500mg tablet PO SCH (07:35)
[2021-01-05] MEDS: ROPINIRole 1mg tablet PO SCH ×2 (07:39→10:31)
[2021-01-05] MEDS: insulin Lispro (HumaLOG) vial - multi-dose SQ PRN (07:54)
[2021-01-05 08:00] VITALS: BP 129/69
[2021-01-05] MEDS ORDERED: lisinopril 10 MG tablet PO SCH (08:00)
[2021-01-05] MEDS ORDERED: ESCITALOPRAM OXALATE 5 MG TABLET PO SCH (08:00)
[2021-01-05] MEDS ORDERED: pantoprazole 40mg Tablet.DR PO SCH (08:00)
[2021-01-05] MEDS ORDERED: oxybutynin 5mg tablet PO SCH (08:00)
[2021-01-05] MEDS ORDERED: levoTHYROXINE 112mcg tablet PO SCH (08:00)
[2021-01-05] MEDS ORDERED: insulin glargine (Lantus) pen - multi-dose SQ SCH (08:00)
[2021-01-05] MEDS ORDERED: levetiracetam 250mg tablet PO SCH (08:00)
--- NOTE | 2021-01-05 14:07 | NUR ---
Pt discharged home as planned by surgeon. Pt in stable condition. IV removed, ice pack provided. discharge and follow up instructions given to pt. pt was picked up by friend. Left the facility via private vehicle.
== END 2021-01-05 12:45 | disposition home health service (06) | DRG 314 ==
LOC: PAS 12:24 → SUR 3N 19:50
PROVIDERS: ADMIT Podiatrist Foot & Ankle Surgery; ATTEND Podiatrist Foot & Ankle Surgery
PROC: 0L8W0ZZ Division of Left Foot Tendon, Open Approach (ICD-10-PCS; 2021-01-04)
PROC: 3E0T3BZ Introduction of Anesthetic Agent into Peripheral Nerves and Plexi, Percutaneous Approach (ICD-10-PCS; 2021-01-04)
PROC: 0SG Lower Joints, Fusion (ICD-10-PCS; principal; 2021-01-04 16:33)
DX: M20.32 Hallux varus (acquired), left foot (principal); M20.42 Other hammer toe(s) (acquired), left foot
CPT/HCPCS: 36415; 73620; 76000; 80053; 81001; 82948; 85025; 87081; 93005; G0378; J0690; J1100; J1815; J2250; J2405; J2704; J2795; J3010; J3490; J7120; U0003

== ENCOUNTER → 2021-12-06 | Day surgery (SDC) | payer MEDICAID ==
[2021-11-29 14:59] LABS: CLARITY,URINE SLIGHTLY CLOUDY (Clear); COLOR,URINE YELLOW (Yellow); GLUCOSE, URINE NEGATIVE (Neg); KETONES,URINE NEGATIVE (Neg); LEUKOCYTE ESTERASE ,URINE NEGATIVE (Neg); NITRITES, URINE NEGATIVE (Neg); OCCULT BLOOD,URINE NEGATIVE (Neg); PROTEIN,URINE NEGATIVE (Neg); UROBILINOGEN,URINE 0.2 E.U/dL (0.2-1.0)
[2021-11-29 15:00] LABS: UA COLLECTION TYPE NON-SPECIFIED
[2021-11-29 15:03] LABS: BASOPHILS % (AUTO) 0.6 % (0-1); EOSINOPHILS # (AUTO) 0.1 X10'3 (0-0.9); LYMPHOCYTES # (AUTO) 1.5 X10'3 (1.1-4.8); LYMPHOCYTES % (AUTO) 26.2 % (21-51); MEAN CORPUSCULAR HEMOGLOBIN 25.3 PG (27.0-31.0); MEAN CORPUSCULAR HGB CONC 32.7 g/dL (33.0-36.5); MEAN CORPUSCULAR VOLUME 77.2 FL (78-98); MEAN PLATELET VOLUME 8.7 FL (7.4-10.4); MONOCYTES # (AUTO) 0.5 X10'3 (0-0.9); MONOCYTES % (AUTO) 8.4 % (2-12); NEUTROPHILS # (AUTO) 3.7 X10'3 (1.8-7.7); NEUTROPHILS % (AUTO) 63.8 % (42-75); PRE OP HEMATOCRIT 38.1 % (35.0-45.0); PRE OP HEMOGLOBIN 12.5 g/dL (12.0-16.0); PRE OP PLATELET COUNT 155 X10'3 (140-440); RED BLOOD COUNT 4.94 X10'6 (4.20-5.60); RED CELL DISTRIBUTION WIDTH 17.8 % (11.5-14.5)
[2021-11-29 15:16] LABS: ALBUMIN 3.8 G/DL (3.4-5.0); ALBUMIN/GLOBULIN RATIO 1.1 (1.1-1.5); ALKALINE PHOSPHATASE 142 IU/L (46-116); BLOOD UREA NITROGEN 19 MG/DL (7-18); BUN/CREATININE RATIO 24.4 (6.6-38.0); CALCIUM 8.7 MG/DL (8.5-10.1); CHLORIDE 107 MMOL/L (99-107); CREATININE 0.78 MG/DL (0.40-0.90); PRE OP ALT 26 U/L (30-65); PRE OP ANION GAP 13 (8-16); PRE OP AST 17 U/L (10-37); PRE OP BILIRUB, TOTAL 0.3 MG/DL (0.0-1.0); PRE OP GLUCOSE 165 MG/DL (70-104); PRE OP POTASSIUM 4.3 MMOL/L (3.4-5.1); PRE OP SODIUM 141 MMOL/L (135-145); TOTAL CARBON DIOXIDE 21.3 MMOL/L (24-32); TOTAL PROTEIN 7.3 G/DL (6.4-8.2); eGFR 75 ML/MIN
[2021-11-29 15:24] LABS: MUCUS STRANDS MANY /LPF (Neg); SQUAMOUS EPITHELIAL CELL,UR MANY /LPF (FEW)
[2021-11-29 15:25] LABS: BACTERIA,URINE 1+ /HPF (Neg); RBC,URINE 0-2 /HPF (0-2); WBC,URINE 0-4 /HPF (0-4)
[~2021-12-06] VITALS: Ht 175.3 cm; Wt 155.0 kg
[2021-12-06] VITALS (9 sets, daily range): BP systolic 148–208; BP diastolic 69–104
[~2021-12-06] MED LIST changes: +BUPIVAcaine 0.5% inj/PF 30 ML ONE; +LIDOcaine 2% (20mg/ml) 5ml vial ONE; -OMEP40CA13 PO; +OMEP40CA21 PO; -albuterol 2.5 MG/3 ML nebule NEB ONE; +bacitracin 15gm ointment TP ONE; +ceFAZolin inj. 3,000 MG in normal saline 100ml IV soln 100 ML IV ONE; -ceFAZolin/D5W- 1GM premix 50 ML IV ONE; -cefazolin/dext.iso 2gm/100ml 100 ML IV ONE; +dexamethasone sod phosphate 4mg/ml inj. ONE; +fentaNYL /PF 50mcg/ml 5ml ampule ONE; +labetalol 20mg/4ml (5mg/ml) syringe IV ONE; +labetalol 5mg/ml 20ml inj. IV PRN; +meperidine/PF 25mg/ml syringe IV PRN; +midazolam 1 mg/ML 2ml injection ONE; +morphine 2 MG/ML inj. syringe IV PRN; +morphine 4 MG/ML inj SYRINge IV PRN; +ondansetron/PF 4mg/2ml inj IV PRN; +proCHLORperazine 10 MG/2 ml inj IV PRN; +propofol inj 20 ML IV ONE; +ringers solution, lacted 1,000 ML IV SCH
--- NOTE | 2021-12-06 10:11 | NUR ---
DR LI NOTIFIED FOR PT BS OF 243 PER ACCUCHECK. PT HAS OWN MONITOR TO UPPER RIGHT ARM PER HER REEDING AT [address] AT BED SIDE AND INSTRUCTED PT TO GIVE HERSELF 10 UNITS OF HER REGULAR INSULIN. PER DR LI PTS MONITOR NEEDS TO GO TO OR WITH HER. BS AT 1010 210. Addendum: 12/06/21 at 1015 by Shanell Min RN Amended: Links added.
--- NOTE | 2021-12-06 13:17 | NUR ---
Received from OR via [facility] , accompanied by Anesthesiologist DR CELESTE and report given by Anesthesiolgist. PATIENT ON 10 LITERS WITH MASK. BP ELEVATED, DR ORDERED MEDS. PIV 20 GAUGE IN LEFT HAND. PERSONAL DIABETIC MONITOR ON PATIENTS RIGHT ARM. BG 160 BANDAGE ON RIGHT FOOT, INCISION ON GREATER TOES AND TOE PINS ON FOUR TOES. Addendum: 12/06/21 at 1353 by Lynne Lopez RN Amended: Links added.
--- NOTE | 2021-12-06 14:37 | NUR ---
PATIENT MEETS DISCHARGE CRITERIA. APPLIED A BOOT TO THE RIGHT LEG/FOOT. AMBULATED PATIENT APPROX. 300 FEET WITH 2 WHEEL WALKER AND HER BOOT ON THE AFFECTED FOOT. EDUCATED PATIENT TO USE HEEL WHEN WEIGHT BEARING. PATIENT WAS EDUCATED TO USE PARTIAL WEIGHT BEARING WHEN AMBULATING. PT. STATES SHE HAS A WALKER AND A WHEELCHAIR AT HOME. VSS. IV DC';D NO COMPLICATIONS. BELONGINGS INCLUDING CELL PHONE, PURSE, BG MONITOR AND PERSONALS ALONG WITH CLOTHING SENT WITH PATIENT. PATIENT VERBALIZED THE ABILITY TO CARE FOR HERSELF AND STATED SHE HAS AN [facility] WORKER WHO HER HELPS. MIKE PICKED UP PATIENT. EDUCATED CAREGIVER OF PATIENTS WEIGHT BEARING STATUS AND LET HER KNOW INSTRUCTIONS WERE IN HER BAG. Addendum: 12/06/21 at 1535 by Lynne Lopez RN Amended: Links added.
== END | disposition home or self-care (01) ==
LOC: PAS 06:40
PROVIDERS: ATTEND Podiatrist Foot & Ankle Surgery
DX: M20.31 Hallux varus (acquired), right foot (principal); M20.41 Other hammer toe(s) (acquired), right foot; M16.11 Unilateral primary osteoarthritis, right hip; M17.11 Unilateral primary osteoarthritis, right knee; G47.30 Sleep apnea, unspecified; I10 Essential (primary) hypertension; K21.9 Gastro-esophageal reflux disease without esophagitis; E11.40 Type 2 diabetes mellitus with diabetic neuropathy, unspecified; E03.9 Hypothyroidism, unspecified; F41.9 Anxiety disorder, unspecified; F32.A Depression, unspecified; G89.18 Other acute postprocedural pain; Z87.442 Personal history of urinary calculi; Z20.822 Contact with and (suspected) exposure to COVID-19; Z79.899 Other long term (current) drug therapy; Z88.5 Allergy status to narcotic agent; Z88.2 Allergy status to sulfonamides; Z91.040 Latex allergy status; Z88.8 Allergy status to other drugs, medicaments and biological substances; Z90.710 Acquired absence of both cervix and uterus; Z98.890 Other specified postprocedural states; Z87.891 Personal history of nicotine dependence
CPT/HCPCS: 28285; 28755; 36415; 64447; 64450; 71046; 73620; 76000; 80053; 81001; 82948; 85025; 93005; A6223; C1713; J0690; J1100; J2250; J2704; J3010; J3490; J7030; J7120; S0020; U0003; U0005; Z7506; Z7508; Z7512; A4215; A4618; A6449; A7000

== ENCOUNTER 2021-12-27 15:46 | Emergency (ER) | payer MEDICAID ==
[~2021-12-27] VITALS: Ht 175.3 cm; Wt 150.0 kg
[~2021-12-27 15:46] MED LIST changes: -BUPIVAcaine 0.5% inj/PF 30 ML ONE; -LIDOcaine 2% (20mg/ml) 5ml vial ONE; -bacitracin 15gm ointment TP ONE; -ceFAZolin inj. 3,000 MG in normal saline 100ml IV soln 100 ML IV ONE; -dexamethasone sod phosphate 4mg/ml inj. ONE; -famotidine 20mg tablet PO ONE; -fentaNYL /PF 50mcg/ml 5ml ampule ONE; -labetalol 20mg/4ml (5mg/ml) syringe IV ONE; -labetalol 5mg/ml 20ml inj. IV PRN; -meperidine/PF 25mg/ml syringe IV PRN; -midazolam 1 mg/ML 2ml injection ONE; -morphine 2 MG/ML inj. syringe IV PRN; -morphine 4 MG/ML inj SYRINge IV PRN; -ondansetron/PF 4mg/2ml inj IV PRN; -proCHLORperazine 10 MG/2 ml inj IV PRN; -propofol inj 20 ML IV ONE; -ringers solution, lacted 1,000 ML IV SCH
[2021-12-27 15:58] VITALS: BP 148/73
== END 2021-12-27 18:13 | disposition home or self-care (01) ==
LOC: ER 15:47
DX: R20.2 Paresthesia of skin (principal); T50.B95A Adverse effect of other viral vaccines, initial encounter; Y92.89 Other specified places as the place of occurrence of the external cause
CPT/HCPCS: 93005; 99281; 99283

== ENCOUNTER 2024-10-13 13:07 | Emergency (ER) | payer MEDICARE, MEDICAID ==
[~2024-10-13] VITALS: Ht 175.3 cm; Wt 133.0 kg
[~2024-10-13 13:07] MED LIST changes: +ATOR-429 PO; -ATOR80TA PO; +EMPA10TA PO; +FERR325T28 PO; +GABA-1405 PO; -GABA600T13 PO; +INSU100I31 SQ; -INSU100I39 SQ; -INSU100V9 SQ; +LEVO100T PO; -LEVO112T61 PO; +LISI10TA27 PO; -LISI2.5T89 PO; +OMEP20CA16 PO; -OMEP40CA21 PO; +VITAMIN B-12; +VITAMIN D3
[2024-10-13 13:19] VITALS: BP 152/54; PULSE 77; RESP 16; TEMP 97.9; O2SAT 95
== END 2024-10-13 16:13 | disposition left against medical advice (07) ==
LOC: ER 13:07
DX: T81.9XXA Unspecified complication of procedure, initial encounter (principal); Z53.21 Procedure and treatment not carried out due to patient leaving prior to being seen by health care provider

== ENCOUNTER 2024-10-18 12:54 | Inpatient (IN) | payer MEDICARE, MEDICAID ==
[~2024-10-18] VITALS: Ht 175.3 cm; Wt 134.0 kg
[2024-10-18 15:19] LABS: BASOPHILS % (AUTO) 0.4 % (0-1); EOSINOPHILS # (AUTO) 0.3 X10'3 (0-0.9); EOSINOPHILS % (AUTO) 4.1 % (0-6); HEMATOCRIT 37.8 % (35.0-45.0); HEMOGLOBIN 12.7 g/dl (12.0-16.0); LYMPHOCYTES # (AUTO) 1.5 X10'3 (1.1-4.8); MEAN CORPUSCULAR HEMOGLOBIN 28.9 PG (27.0-31.0); MEAN CORPUSCULAR HGB CONC 33.6 g/dL (33.0-36.5); MEAN PLATELET VOLUME 8.6 FL (7.4-10.4); MONOCYTES # (AUTO) 0.4 X10'3 (0-0.9); MONOCYTES % (AUTO) 6.9 % (2-12); NEUTROPHILS # (AUTO) 4.2 X10'3 (1.8-7.7); NEUTROPHILS % (AUTO) 65.6 % (42-75); PLATELET COUNT 114 X10'3 (140-440); RED BLOOD COUNT 4.39 X10'6 (4.20-5.60); RED CELL DISTRIBUTION WIDTH 17.4 % (11.5-14.5); WHITE BLOOD COUNT 6.4 X10'3 (4.5-11.0)
[2024-10-18 15:40] LABS: ALANINE AMINOTRANSFERASE 24 U/L (12-78); ALBUMIN 3.7 G/DL (3.4-5.0); ALBUMIN/GLOBULIN RATIO 1.1 (1.1-1.5); ALKALINE PHOSPHATASE 108 IU/L (46-116); ANION GAP 13 (8-16); ASPARTATE AMINO TRANSFERASE 12 U/L (10-37); BILIRUBIN,TOTAL 0.4 MG/DL (0.1-1.0); BLOOD UREA NITROGEN 23 MG/DL (7-18); BUN/CREATININE RATIO 32.4 (10.0-20.0); CALCIUM 9.5 MG/DL (8.5-10.1); CHLORIDE 108 MMOL/L (99-107); CREATININE 0.71 MG/DL (0.40-0.90); GLUCOSE 142 MG/DL (70-104); POTASSIUM 4.1 MMOL/L (3.5-5.1); SODIUM 142 MMOL/L (135-145); TOTAL CARBON DIOXIDE 21.5 MMOL/L (24-32); TOTAL PROTEIN 7.2 G/DL (6.4-8.2); eCRCL 81 ML/MIN; eGFR 82 ML/MIN
[2024-10-18] MEDS: vancomycin/NS 1 GM ADD-VANTAGE 250 ML X 1 DOSE IV ONE (15:58)
[2024-10-18] MEDS: normal saline 1000ml 1,000 ML IV SCH ×2 (15:58→18:28)
[2024-10-18] MEDS ORDERED: potassium Cl 40MEQ/1/2NS 520ml 520 ML IV PRN (16:15)
[2024-10-18] MEDS ORDERED: potassium Cl 20 mEq SR tablet PO PRN ×2 (16:15)
[2024-10-18] MEDS ORDERED: magnesium Cl slow-release 64mg tablet PO PRN (16:15)
[2024-10-18] MEDS ORDERED: magnesium sulf-water 4G/100mL 100 ML IV PRN (16:15)
[2024-10-18] MEDS ORDERED: magnesium sulf-water 2g/50mL 50 ML IV PRN (16:15)
[2024-10-18] MEDS ORDERED: ondansetron/PF 4mg/2ml inj IV PRN (16:15)
[2024-10-18] MEDS ORDERED: acetaminophen 325mg tablet PO PRN (16:15)
[2024-10-18] MEDS ORDERED: DEXTROSE 15 GM of carb/4 tabs (each vial/BOTTLE has 4 tablets) PO PRN ×2 (17:15)
[2024-10-18] MEDS ORDERED: dextrose 50%-water 50ml dispensing syringe IV PRN ×2 (17:15)
[2024-10-18] MEDS ORDERED: glucagon, human recombinant 1mg kit SUBCUT PRN (17:15)
[2024-10-18] MEDS: CefTRIAXone/D5W-Rocephin 1gm 50 ML IV SCH (18:29)
[2024-10-18] MEDS: HYDROmorphone 1 mg/ml syringe IV ONE (18:29)
[2024-10-18] MEDS: lisinopril 10 MG tablet PO SCH (18:34)
[2024-10-18] MEDS: heparin, porcine 5000 units/ml vial SQ SCH (20:00)
[2024-10-18] MEDS: K and/or MAG REPLACEMENT MC SCH (20:00)
[2024-10-18] MEDS ORDERED: VANCOMYCIN 1,500MG inj. 1,500 MG in normal saline 500ml IV soln 300 ML IV SCH (20:00)
[2024-10-18] MEDS: insulin glargine (Lantus) VIAL- multi-dose SQ SCH (21:00)
[2024-10-18] MEDS ORDERED: insulin glargine (Lantus) pen - multi-dose SQ SCH (21:00)
[2024-10-18] MEDS: INSULIN LISPRO 100 UNIT/ML INSULN.PEN MULTI-DOSE SQ SCH (21:00)
[2024-10-18] MEDS: atorvastatin 20mg tablet PO SCH (21:39)
[2024-10-18] MEDS: levetiracetam 250mg tablet PO SCH (21:41)
[2024-10-18] MEDS: ROPINIRole 1mg tablet PO SCH (22:26)
[2024-10-19] MEDS: gabapentin 300mg capsule PO SCH (00:12)
[2024-10-19] MEDS: HYDROcodone/acetaminophen 5mg/325mg tablet PO PRN (00:12)
[2024-10-19] MEDS: vancomycin/NS 1 GM ADD-VANTAGE 250 ML IV SCH (00:32)
[2024-10-19 03:49] LABS: BASOPHILS % (AUTO) 0.7 % (0-1); EOSINOPHILS # (AUTO) 0.3 X10'3 (0-0.9); EOSINOPHILS % (AUTO) 6.8 % (0-6); HEMATOCRIT 35.5 % (35.0-45.0); HEMOGLOBIN 11.7 g/dl (12.0-16.0); LYMPHOCYTES # (AUTO) 1.5 X10'3 (1.1-4.8); LYMPHOCYTES % (AUTO) 31.6 % (21-51); MEAN CORPUSCULAR HEMOGLOBIN 28.4 PG (27.0-31.0); MEAN CORPUSCULAR HGB CONC 32.8 g/dL (33.0-36.5); MEAN CORPUSCULAR VOLUME 86.6 FL (78-98); MEAN PLATELET VOLUME 8.6 FL (7.4-10.4); MONOCYTES # (AUTO) 0.4 X10'3 (0-0.9); MONOCYTES % (AUTO) 8.4 % (2-12); NEUTROPHILS # (AUTO) 2.6 X10'3 (1.8-7.7); NEUTROPHILS % (AUTO) 52.5 % (42-75); PLATELET COUNT 105 X10'3 (140-440); WHITE BLOOD COUNT 4.9 X10'3 (4.5-11.0)
[2024-10-19 04:02] LABS: ALANINE AMINOTRANSFERASE 25 U/L (12-78); ALBUMIN 2.8 G/DL (3.4-5.0); ALBUMIN/GLOBULIN RATIO 0.8 (1.1-1.5); ALKALINE PHOSPHATASE 96 IU/L (46-116); ANION GAP 8 (8-16); ASPARTATE AMINO TRANSFERASE 17 U/L (10-37); BILIRUBIN,TOTAL 0.5 MG/DL (0.1-1.0); BLOOD UREA NITROGEN 21 MG/DL (7-18); BUN/CREATININE RATIO 28.4 (10.0-20.0); CALCIUM 8.8 MG/DL (8.5-10.1); CHLORIDE 111 MMOL/L (99-107); CREATININE 0.74 MG/DL (0.40-0.90); GLUCOSE 181 MG/DL (70-104); POTASSIUM 4.2 MMOL/L (3.5-5.1); SODIUM 142 MMOL/L (135-145); TOTAL CARBON DIOXIDE 22.8 MMOL/L (24-32); TOTAL PROTEIN 6.5 G/DL (6.4-8.2); eCRCL 78 ML/MIN; eGFR 79 ML/MIN
[2024-10-19 07:15] VITALS: BP 128/51; PULSE 65; RESP 16; TEMP 97.3; O2SAT 95
[2024-10-19] MEDS: ESCITALOPRAM 10 mg tablet 10 MG TABLET PO SCH (07:57)
[2024-10-19] MEDS: levoTHYROXINE 100mcg tablet PO SCH (07:57)
[2024-10-19] MEDS: oxybutynin 5mg tablet PO SCH (07:57)
[2024-10-19] MEDS: EMPAGLIFLOZIN 10 MG TABLET PO SCH (07:57)
[2024-10-19] MEDS: pantoprazole 40mg Tablet.DR PO SCH (07:57)
[2024-10-19 08:00] VITALS: RESP 18; O2SAT 96
[2024-10-19 13:01] VITALS: BP 121/80; PULSE 61; RESP 19; TEMP 97; O2SAT 94
[2024-10-19] MEDS: VANCOMYCIN LEVEL IV ONE (15:30)
[2024-10-19 19:40] VITALS: BP 125/54; PULSE 66; RESP 16; TEMP 97.6; O2SAT 95
[2024-10-19 20:00] VITALS: RESP 18; O2SAT 95
[2024-10-19 22:00] VITALS: BP 135/61; PULSE 75; RESP 20; TEMP 97.8; O2SAT 94
[2024-10-20] VITALS (12 sets, daily range): BP systolic 123–186; BP diastolic 57–88; PULSE 66–116; RESP 14–18; TEMP 97.4–97.9; O2SAT 92–99
[2024-10-20 05:26] LABS: BASOPHILS % (AUTO) 0.7 % (0-1); EOSINOPHILS # (AUTO) 0.4 X10'3 (0-0.9); EOSINOPHILS % (AUTO) 7.9 % (0-6); HEMATOCRIT 36.1 % (35.0-45.0); HEMOGLOBIN 11.8 g/dl (12.0-16.0); LYMPHOCYTES # (AUTO) 1.5 X10'3 (1.1-4.8); LYMPHOCYTES % (AUTO) 32.4 % (21-51); MEAN CORPUSCULAR HEMOGLOBIN 28.3 PG (27.0-31.0); MEAN CORPUSCULAR HGB CONC 32.7 g/dL (33.0-36.5); MEAN CORPUSCULAR VOLUME 86.7 FL (78-98); MEAN PLATELET VOLUME 8.6 FL (7.4-10.4); MONOCYTES # (AUTO) 0.4 X10'3 (0-0.9); MONOCYTES % (AUTO) 9.1 % (2-12); NEUTROPHILS # (AUTO) 2.3 X10'3 (1.8-7.7); NEUTROPHILS % (AUTO) 49.9 % (42-75); PLATELET COUNT 103 X10'3 (140-440); RED BLOOD COUNT 4.17 X10'6 (4.20-5.60); RED CELL DISTRIBUTION WIDTH 17.4 % (11.5-14.5); WHITE BLOOD COUNT 4.7 X10'3 (4.5-11.0)
[2024-10-20 05:51] LABS: ALANINE AMINOTRANSFERASE 21 U/L (12-78); ALBUMIN 3.3 G/DL (3.4-5.0); ALBUMIN/GLOBULIN RATIO 0.9 (1.1-1.5); ALKALINE PHOSPHATASE 82 IU/L (46-116); ANION GAP 9 (8-16); ASPARTATE AMINO TRANSFERASE 17 U/L (10-37); BILIRUBIN,TOTAL 0.5 MG/DL (0.1-1.0); BLOOD UREA NITROGEN 19 MG/DL (7-18); BUN/CREATININE RATIO 25.3 (10.0-20.0); CALCIUM 9.2 MG/DL (8.5-10.1); CHLORIDE 108 MMOL/L (99-107); CREATININE 0.75 MG/DL (0.40-0.90); GLUCOSE 165 MG/DL (70-104); POTASSIUM 4.3 MMOL/L (3.5-5.1); SODIUM 142 MMOL/L (135-145); TOTAL CARBON DIOXIDE 24.8 MMOL/L (24-32); TOTAL PROTEIN 6.8 G/DL (6.4-8.2); eCRCL 77 ML/MIN; eGFR 77 ML/MIN
[2024-10-20] MEDS: morphine 2 MG/ML inj. syringe IV ONE (08:48)
[2024-10-20] MEDS: metroNIDAZOLE-Flagyl 500mg/NS 100 ML IV SCH (12:00)
[2024-10-20] MEDS ORDERED: ondansetron/PF 4mg/2ml inj IV PRN (13:20)
[2024-10-20] MEDS ORDERED: morphine 4 MG/ML inj SYRINge IV PRN (13:20)
[2024-10-20] MEDS ORDERED: morphine 2 MG/ML inj. syringe IV PRN (13:20)
[2024-10-20] MEDS ORDERED: meperidine/PF 25mg/ml syringe IV PRN (13:20)
[2024-10-20] MEDS ORDERED: proCHLORperazine 10 MG/2 ml inj IV PRN (13:20)
[2024-10-20] MEDS ORDERED: enalaprilat 1.25mg/ml 2ml vial IV PRN (13:20)
[2024-10-20] MEDS ORDERED: labetalol 20mg/4ml (5mg/ml) syringe IV PRN (13:20)
[2024-10-20] MEDS: famotidine 20mg tablet PO STA (13:48)
[2024-10-20] MEDS ORDERED: sevoflurane 250ml liquid IH ONE (14:40)
[2024-10-20] MEDS ORDERED: midazolam 1 mg/ML 2ml injection ONE (14:46)
[2024-10-20] MEDS ORDERED: fentaNYL/PF 50MCG/1 ML 2ML syringe ONE (14:46)
[2024-10-20] MEDS ORDERED: propofol inj 20 ML IV ONE (14:47)
[2024-10-20] MEDS ORDERED: LIDOcaine 1%/PF 5ML 10 MG/ML VIAL ONE (14:47)
[2024-10-20] MEDS ORDERED: meperidine/PF 25mg/ml syringe ONE (15:21)
[2024-10-20] MEDS ORDERED: vancomycin 1,000mg inj ONE (15:23)
[2024-10-20] MEDS: GADOTERATE MEGLUMINE 7.5 MMOL/15 ML VIAL IV ONE (15:50)
[2024-10-20] MEDS: meperidine/PF 25mg/ml syringe IV PRN ×2 (15:53→16:16)
[2024-10-20] MEDS: ringers solution, lacted 1,000 ML IV SCH (15:56)
[2024-10-20] MEDS: morphine 2 MG/ML inj. syringe IV PRN (20:25)
[2024-10-21] VITALS (7 sets, daily range): BP systolic 107–129; BP diastolic 40–61; PULSE 59–66; RESP 16; TEMP 97.6–98.7; O2SAT 91–99
[2024-10-21] MEDS: ceFAZolin 2gm in dextrose, iso 50 ML IV SCH (00:17)
[2024-10-21 04:42] LABS: BASOPHILS % (AUTO) 0.5 % (0-1); EOSINOPHILS % (AUTO) 0.7 % (0-6); HEMATOCRIT 35.6 % (35.0-45.0); HEMOGLOBIN 11.8 g/dl (12.0-16.0); LYMPHOCYTES # (AUTO) 1.2 X10'3 (1.1-4.8); LYMPHOCYTES % (AUTO) 24.8 % (21-51); MEAN CORPUSCULAR HEMOGLOBIN 28.6 PG (27.0-31.0); MEAN CORPUSCULAR HGB CONC 33.2 g/dL (33.0-36.5); MEAN PLATELET VOLUME 8.3 FL (7.4-10.4); MONOCYTES # (AUTO) 0.3 X10'3 (0-0.9); MONOCYTES % (AUTO) 6.3 % (2-12); NEUTROPHILS # (AUTO) 3.3 X10'3 (1.8-7.7); NEUTROPHILS % (AUTO) 67.7 % (42-75); PLATELET COUNT 111 X10'3 (140-440); RED BLOOD COUNT 4.14 X10'6 (4.20-5.60); RED CELL DISTRIBUTION WIDTH 17.2 % (11.5-14.5); WHITE BLOOD COUNT 4.9 X10'3 (4.5-11.0)
[2024-10-21 05:01] LABS: ALANINE AMINOTRANSFERASE 24 U/L (12-78); ALBUMIN 3.3 G/DL (3.4-5.0); ALKALINE PHOSPHATASE 79 IU/L (46-116); ANION GAP 9 (8-16); ASPARTATE AMINO TRANSFERASE 11 U/L (10-37); BILIRUBIN,TOTAL 0.4 MG/DL (0.1-1.0); BLOOD UREA NITROGEN 19 MG/DL (7-18); BUN/CREATININE RATIO 32.2 (10.0-20.0); CALCIUM 9.2 MG/DL (8.5-10.1); CHLORIDE 109 MMOL/L (99-107); CREATININE 0.59 MG/DL (0.40-0.90); GLUCOSE 181 MG/DL (70-104); POTASSIUM 4.4 MMOL/L (3.5-5.1); SODIUM 143 MMOL/L (135-145); TOTAL CARBON DIOXIDE 25.3 MMOL/L (24-32); TOTAL PROTEIN 6.5 G/DL (6.4-8.2); eCRCL 98 ML/MIN; eGFR > 90 ML/MIN
[2024-10-21] MEDS: GADOTERATE MEGLUMINE 7.5 MMOL/15 ML VIAL IV ONE (21:24)
[2024-10-22] VITALS (18 sets, daily range): BP systolic 110–170; BP diastolic 47–85; PULSE 61–86; RESP 13–64; TEMP 98.2; O2SAT 92–100
[2024-10-22 06:10] LABS: BASOPHILS % (AUTO) 0.5 % (0-1); EOSINOPHILS # (AUTO) 0.3 X10'3 (0-0.9); EOSINOPHILS % (AUTO) 5.5 % (0-6); HEMATOCRIT 36.6 % (35.0-45.0); LYMPHOCYTES # (AUTO) 1.9 X10'3 (1.1-4.8); LYMPHOCYTES % (AUTO) 31.9 % (21-51); MEAN CORPUSCULAR HEMOGLOBIN 28.5 PG (27.0-31.0); MEAN CORPUSCULAR HGB CONC 32.8 g/dL (33.0-36.5); MEAN CORPUSCULAR VOLUME 86.7 FL (78-98); MEAN PLATELET VOLUME 8.6 FL (7.4-10.4); MONOCYTES # (AUTO) 0.5 X10'3 (0-0.9); MONOCYTES % (AUTO) 7.9 % (2-12); NEUTROPHILS # (AUTO) 3.2 X10'3 (1.8-7.7); NEUTROPHILS % (AUTO) 54.2 % (42-75); PLATELET COUNT 114 X10'3 (140-440); RED BLOOD COUNT 4.21 X10'6 (4.20-5.60); RED CELL DISTRIBUTION WIDTH 17.6 % (11.5-14.5); WHITE BLOOD COUNT 5.9 X10'3 (4.5-11.0)
[2024-10-22 06:37] LABS: ALANINE AMINOTRANSFERASE 22 U/L (12-78); ALBUMIN 3.3 G/DL (3.4-5.0); ALKALINE PHOSPHATASE 76 IU/L (46-116); ANION GAP 9 (8-16); ASPARTATE AMINO TRANSFERASE 14 U/L (10-37); BILIRUBIN,TOTAL 0.3 MG/DL (0.1-1.0); BLOOD UREA NITROGEN 21 MG/DL (7-18); BUN/CREATININE RATIO 31.8 (10.0-20.0); CALCIUM 8.9 MG/DL (8.5-10.1); CHLORIDE 109 MMOL/L (99-107); CREATININE 0.66 MG/DL (0.40-0.90); GLUCOSE 173 MG/DL (70-104); SODIUM 144 MMOL/L (135-145); TOTAL CARBON DIOXIDE 26.4 MMOL/L (24-32); TOTAL PROTEIN 6.6 G/DL (6.4-8.2); eCRCL 88 ML/MIN; eGFR 90 ML/MIN
[2024-10-22] MEDS ORDERED: BUPIVAcaine/PF 2.5mg/ml (0.25%) 10ml vial ONE (07:31)
[2024-10-22] MEDS ORDERED: fentaNYL/PF 50MCG/1 ML 2ML syringe ONE (08:06)
[2024-10-22] MEDS ORDERED: midazolam 1 mg/ML 2ml injection ONE (08:07)
[2024-10-22] MEDS ORDERED: propofol inj 20 ML IV ONE (08:55)
[2024-10-22] MEDS ORDERED: labetalol 20mg/4ml (5mg/ml) syringe IV PRN (09:15)
[2024-10-22] MEDS ORDERED: meperidine/PF 25mg/ml syringe IV PRN ×2 (09:15)
[2024-10-22] MEDS ORDERED: morphine 2 MG/ML inj. syringe IV PRN (09:15)
[2024-10-22] MEDS ORDERED: ondansetron/PF 4mg/2ml inj IV PRN (09:15)
[2024-10-22] MEDS: ringers solution, lacted 1,000 ML IV SCH (09:15)
[2024-10-22] MEDS ORDERED: proCHLORperazine 10 MG/2 ml inj IV PRN (09:15)
[2024-10-22] MEDS ORDERED: morphine 4 MG/ML inj SYRINge IV PRN (09:15)
[2024-10-22] MEDS: meperidine/PF 25mg/ml syringe IV PRN (09:19)
[2024-10-22] MEDS: acetaminophen 1,000mg/100ml IV 100 ML IV ONE (09:35)
[2024-10-23] VITALS (7 sets, daily range): BP systolic 111–128; BP diastolic 55–66; PULSE 72–86; RESP 17–20; TEMP 97.5–99.5; O2SAT 92–96
[2024-10-23 05:50] LABS: BASOPHILS % (AUTO) 0.6 % (0-1); EOSINOPHILS # (AUTO) 0.3 X10'3 (0-0.9); EOSINOPHILS % (AUTO) 4.1 % (0-6); HEMATOCRIT 33.2 % (35.0-45.0); HEMOGLOBIN 10.8 g/dl (12.0-16.0); LYMPHOCYTES % (AUTO) 28.8 % (21-51); MEAN CORPUSCULAR HEMOGLOBIN 27.9 PG (27.0-31.0); MEAN CORPUSCULAR HGB CONC 32.6 g/dL (33.0-36.5); MEAN CORPUSCULAR VOLUME 85.5 FL (78-98); MEAN PLATELET VOLUME 8.2 FL (7.4-10.4); MONOCYTES # (AUTO) 0.6 X10'3 (0-0.9); MONOCYTES % (AUTO) 8.8 % (2-12); NEUTROPHILS % (AUTO) 57.7 % (42-75); PLATELET COUNT 118 X10'3 (140-440); RED BLOOD COUNT 3.89 X10'6 (4.20-5.60); RED CELL DISTRIBUTION WIDTH 17.7 % (11.5-14.5); WHITE BLOOD COUNT 6.9 X10'3 (4.5-11.0)
[2024-10-23 06:13] LABS: ALANINE AMINOTRANSFERASE 36 U/L (12-78); ALBUMIN/GLOBULIN RATIO 0.9 (1.1-1.5); ALKALINE PHOSPHATASE 91 IU/L (46-116); ANION GAP 6 (8-16); ASPARTATE AMINO TRANSFERASE 27 U/L (10-37); BILIRUBIN,TOTAL 0.5 MG/DL (0.1-1.0); BLOOD UREA NITROGEN 16 MG/DL (7-18); BUN/CREATININE RATIO 23.2 (10.0-20.0); CALCIUM 8.4 MG/DL (8.5-10.1); CHLORIDE 106 MMOL/L (99-107); CREATININE 0.69 MG/DL (0.40-0.90); GLUCOSE 137 MG/DL (70-104); POTASSIUM 3.9 MMOL/L (3.5-5.1); SODIUM 140 MMOL/L (135-145); TOTAL CARBON DIOXIDE 27.6 MMOL/L (24-32); TOTAL PROTEIN 6.2 G/DL (6.4-8.2); eCRCL 84 ML/MIN; eGFR 85 ML/MIN
[2024-10-24 06:00] VITALS: BP 124/56; PULSE 65; RESP 20; TEMP 97.4; O2SAT 95
[2024-10-24 09:00] VITALS: RESP 18
[2024-10-24 10:00] VITALS: BP 121/57; PULSE 69; RESP 20; TEMP 98.2; O2SAT 90
[2024-10-24] MEDS: LORazepam 0.5 MG tablet PO PRN (15:00)
== END 2024-10-24 15:49 | DRG 857 ==
LOC: ER 12:55 → ED HOLD 16:21 → SUR 3N 10-19 07:15
PROVIDERS: ADMIT Internal Medicine; ATTEND Internal Medicine
PROC: 0KDQ0ZZ Extraction of Right Upper Leg Muscle, Open Approach (ICD-10-PCS; 2024-10-20)
PROC: 0KDQ0ZZ Extraction of Right Upper Leg Muscle, Open Approach (ICD-10-PCS; principal; 2024-10-22 08:02)
DX: T81.41XA Infection following a procedure, superficial incisional surgical site, initial encounter (principal); L02.415 Cutaneous abscess of right lower limb; L03.115 Cellulitis of right lower limb; T81.31XA Disruption of external operation (surgical) wound, not elsewhere classified, initial encounter; Z68.41 Body mass index [BMI] 40.0-44.9, adult; E11.9 Type 2 diabetes mellitus without complications; E66.01 Morbid (severe) obesity due to excess calories; Z91.040 Latex allergy status; E03.9 Hypothyroidism, unspecified; F32.A Depression, unspecified; D16.21 Benign neoplasm of long bones of right lower limb; G40.909 Epilepsy, unspecified, not intractable, without status epilepticus; Y83.8 Other surgical procedures as the cause of abnormal reaction of the patient, or of later complication, without mention of misadventure at the time of the procedure; F41.9 Anxiety disorder, unspecified; K21.9 Gastro-esophageal reflux disease without esophagitis; E78.00 Pure hypercholesterolemia, unspecified; Z79.899 Other long term (current) drug therapy; Z88.5 Allergy status to narcotic agent; Z88.2 Allergy status to sulfonamides; Z88.8 Allergy status to other drugs, medicaments and biological substances; Z90.710 Acquired absence of both cervix and uterus; Z90.49 Acquired absence of other specified parts of digestive tract; Y92.89 Other specified places as the place of occurrence of the external cause
CPT/HCPCS: 36410; 36415; 73552; 73720; 76881; 76937; 80053; 80202; 82948; 83036; 83605; 84145; 85025; 85651; 87040; 87070; 87075; 87077; 87081; 87186; 97116; 97161; 97530; 99285; A4215; A4615; A4618; A4620; A6253; A6266; A6446; A6449; A7000; A9272; C1751; G0378; J0131; J0690; J0696; J1100; J1171; J1644; J1815; J2175; J2250; J2270; J2405; J2704; J3010; J3370; J3490; J7030; J7120

== ENCOUNTER 2025-09-08 13:53 | Outpatient (CLI) | payer MEDICARE, MEDICAID ==
--- NOTE | 2025-09-08 16:59 | RADIOLOGY REPORT ---
EXAM: MR MRI UPPER EXTREMITY LEFT INDICATION: PAIN IN LEFT SHOULDER;IMPINGEMENT SYNDROME OF LEFT SHOULDER TECHNIQUE: Multiplanar, multisequence MR images of the left shoulder were obtained in the absence of gadolinium contrast material. COMPARISON: None FINDINGS: [CORACOACROMIAL ARCH]: Mild degenerative change of the left acromioclavicular joint. Intact coracoclavicular ligaments. Intact coracoacromial ligaments. Trace subacromial/subdeltoid bursal fluid. [ROTATOR CUFF]: Intact. Mild tendinosis of the subscapularis and superior rotator cuff. Focal area of low T1/ low T2 signal of the superior fibers of the sub scapularis of the distal insertion and underlying calcific tendonitis not excluded. [BICEPS TENDON]: Trace amount of fluid along the long head of the biceps tendon sheath, which is disproportionate to the amount of fluid in the glenohumeral joint and therefore consideration for biceps tenosynovitis. [LABRUM]: Intact. [CARTILAGE]: No measurable cartilage defect. [GLENOHUMERAL JOINT]: Slight thickening of the axillary pouch which may reflect adhesive capsulitis. [BONES]: No acute fracture, osseous contusion, or aggressive focal osseous lesion. [MUSCLES]: Normal muscle bulk of the rotator cuff muscles. [NEUROVASCULAR/LYMPH NODES]: Normal. [OTHER]: None. IMPRESSION: 1. Trace amount of fluid along the long head of the biceps tendon sheath, which is disproportionate to the amount of fluid in the glenohumeral joint and therefore consideration for biceps tenosynovitis. 2. Slight thickening of the axillary pouch which may reflect adhesive capsulitis. 3. Trace subacromial/subdeltoid bursal fluid.
== END 2025-09-08 23:59 | disposition home or self-care (01) ==
LOC: MRI02 13:53
PROVIDERS: ATTEND Orthopaedic Surgery
DX: M19.012 Primary osteoarthritis, left shoulder (principal); M25.512 Pain in left shoulder; M75.42 Impingement syndrome of left shoulder; M75.102 Unspecified rotator cuff tear or rupture of left shoulder, not specified as traumatic
CPT/HCPCS: 73221